=== PATIENT | male | born 1970 | race Caucasian/White ===

== ENCOUNTER 2022-08-11 11:39 | Outpatient (CLI) | payer OTHER, SELFPAY ==
--- NOTE | ~2022-08-11 | MR_ITS ---
EXAMINATION: MR knee RT wo con DATE: 08/11/2022 12:13 INDICATION: Right knee internal derangement TECHNIQUE: Magnetic resonance imaging (MRI) of the right knee was performed without intravenous contr ast. Sequences included coronal PD-weighted FSE, coronal PD-weighted FS FSE, sagittal T2-weighted FS E, sagittal PD-weighted FS FSE and axial PD weighted fat saturated FSE. COMPARISON: None. FINDINGS: Medial compartment: Complex tear of the body and posterior horn of the medial meniscus. Small central subchondral osteoph yte measuring 7 mm AP and 3 mm medial collateral at the site of deep chondral ulceration and fissurin g at the anterior weightbearing medial femoral condyle. Additional shallow chondral surface irregular ity along the medial tibial plateau. Lateral compartment: Lateral meniscus is normal. Small central subchondral osteophyte measuring 1.4 cm AP and 6 mm medial collateral at the site of deep chondral ulceration at the junction of the anterior to central weightb earing lateral femoral condyle. Additional partial thickness chondral ulceration involving greater th an 50% the cartilage thickness and with chondral surface regularity along the posterior medial aspect of the lateral tibial plateau. Patellofemoral compartment: Partial-thickness cartilage loss with deep fissuring and mild reticular edema-like signal change at t he medial patellar facet. Additional deep chondral fissuring with underlying cortical irregularity an d edema-like signal change at the central aspect of the lateral patellar facet. Additional deep chondral ulceration along the large portion of the lateral trochlea, the mid to infer ior trochlear groove and medial trochlea. Small central subchondral osteophytes as well as chondral f issuring at the cephalad aspect of the trochlear groove. Ligaments and tendons: Postoperative changes along the patellar tendon, anterior patella and anterior tibial tuberosity cons istent with prior patellar tendon autograft harvest site for an anterior cruciate ligament reconstruc tion. There appears be a partial-thickness tear of the anterior cruciate ligament reconstruction rosy t. A portion of the graft however appears to remain intact following a normal course between the femo ral and tibial tunnels. The posterior cruciate ligament is normal. The medial collateral ligament is normal. There is mild thickening and mild increased signal of the proximal fibular collateral ligamen t without surrounding edema consistent with scarring related to chronic sprain. Mild tendinopathy of the distal semimembranosus tendon. The remaining visualized medial hamstring tendons as well as the b iceps femoris tendon and the iliotibial band are normal. Fluid: Small glenohumeral joint effusion. Prominent synovitis at the posterior recess of the joint space. Th ere are also several multilobulated ganglion cysts posterior to the. Additional larger multiloculated ganglion cyst measuring 3.2 x 2.8 x 2.3 cm along the posterior margin of the distal femoral metaphys is margin of the cephalad popliteal fossa. No loose osteochondral bodies identified. Osseous/other: Bone alignment is normal. No fracture or pathologic marrow replacing process. IMPRESSION: 1. Prior anterior cruciate ligament reconstruction utilizing a patellar tendon autograft. There appea rs to be a partial tear of the graft. 2. Complex medial meniscal tear. 3. Mild tricompartmental osteoarthritis at the right knee with regions of high-grade chondral malacia in all 3 compartments. 4. Small right knee joint effusion and associated synovitis along with several ganglion cyst at the p osterior aspect of the knee. Reviewed, dictated and finalized at location B. IMPRESSION: 1. Prior anterior cruciate
== END 2022-08-11 11:40 | disposition home or self-care (01) ==
PROVIDERS: PCP Family Medicine; Visit Provider Orthopaedic Surgery
DX: M17.11 Unilateral primary osteoarthritis, right knee (principal); M25.461 Effusion, right knee; S83.231A Complex tear of medial meniscus, current injury, right knee, initial encounter; X58.XXXA Exposure to other specified factors, initial encounter
CPT/HCPCS: 73721

== ENCOUNTER 2022-10-21 09:06 | Outpatient (CLI) | payer OTHER, SELFPAY ==
--- NOTE | 2022-10-21 09:17 | ECG_ITS ---
Measurements Intervals [place] Rate: 67 P: 40 SC: 180 QRS: 6 QRSD: 107 T: 44 QT: 388 QTc: 411 Interpretive Statements SINUS RHYTHM BASELINE ARTIFACT- III, AVR, AVL, AVF NORMAL ECG NO PREVIOUS ECG AVAILABLE FOR COMPARISON Electronically Signed On 10-21-2022 12:51:05 REORDERING CLERK by Stephan Chambers D.O.
== END 2022-10-21 09:07 | disposition home or self-care (01) ==
LOC: ANHLAB 09:10
PROVIDERS: PCP Family Medicine; Visit Provider Family Medicine
DX: I10 Essential (primary) hypertension (principal)
CPT/HCPCS: 93005

== ENCOUNTER 2022-11-17 00:37 | Day surgery (SDC) | payer OTHER, SELFPAY ==
[2022-11-10 08:40] VITALS: BMI 31.8
--- NOTE | 2022-11-10 08:46 | PC.NURSE ---
Report to the Outpatient Waiting Room, entrance under the green pavilion located off [facility], at time 1130 on date 11/17/22. Planned Procedure Time: 1330. Time changes happen often and if your time is changed the preop area will call you the afternoon before. - You and your visitor will be asked to self-screen and do not enter if you have any COVID symptoms. - Only one visitor is requested with a max of two and NO children visitors are allowed at this time. - The patient visitor may be requested to leave or wait in car when not with patient due to distancing restrictions. - A mask is optional within the hospital at this time. Patients may have clear liquids (water, carbonated beverages, clear teas, apple juice) until 3 hours prior to surgery with a maximum of 20 ounces. - No food from midnight until time of surgery Take the following medications with a SIP of water the morning of surgery: N/A DO NOT STOP ANY OF YOUR OTHER PRESCRIPTION MEDICATIONS PRIOR TO SURGERY EXCEPT THE FOLLOWING Medications to discontinue per physician: N/A Date to take last dose: N/A Please no make-up, nail sami, hairspray, perfume, deodorant, or body powder the day of surgery. No jewelry (including any body piercings) or valuables the day of surgery, leave them at home. Please take a shower or bath the night before, or the morning of, surgery with an antibacterial soap. Wear comfortable, loose fitting clothing. - Jewelry must be removed prior to entering the operating room. Rings and piercings that are not removed may be cut off. - The hospital will not accept responsibility for valuables. - Please leave all valuables, including medications, at home the day of surgery. If you are going home after surgery, a licensed hydraulic lift driver must drive you home. - NO public transportation without another adult if you receive anesthesia. - We recommend that an adult stay with you for 24 hours following discharge. - We also recommend that you do not drive, make important decision, drink alcoholic beverages, or take any drugs that were not prescribed by your health care provider for at least 24 hours after your discharge time. Follow any additional instructions given to you from your surgeon. If you or anyone in your household have experienced Covid symptoms in the past week, please notify your surgeon or the nurse liaison at the phone number below for possible testing. Telephone instructions given to ERROL - DEMARCUS GUILLEN and asked if any additional questions and then verbalized understanding. Patient advised to call surgeon office or pre surgery nurse liaison [phone] if any additional questions.
[2022-11-17] VITALS (9 sets, daily range): BP systolic 127–167; BP diastolic 85–113; PULSE 58–76; RESP 10–16; TEMP 36.1–36.4; O2SAT 97–100
--- NOTE | 2022-11-17 07:19 | WPDHPUPDATE1 ---
History and Physical Update Update Date/Time: 11/17/22 07:19 History and Physical has been reviewed, including an updated exam of the patient. There are NO changes in the patient's condition. Risks, benefits, and alternatives have been discussed and questions answered. Patient agrees to proceed with procedure.
[2022-11-17] MEDS: LACTATED RINGERS 1,000 ML 30 ML IV CONT ×2 (12:30→15:21)
[2022-11-17] MEDS: CELECOXIB 200 MG CAPSULE PO (12:30)
[2022-11-17] MEDS: ACETAMINOPHEN 500 MG TABLET 1000 MG PO (12:30)
--- NOTE | 2022-11-17 12:43 | P.PNAN_ITS ---
Anes - Initial Pre Proc Eval Procedure: Operation Date: 11/17/22 13:30 Proposed Procedures p Right Knee Arthroscopy, Proceed As Indicated - Dioni Vogt MD Date/Time: 11/17/22 12:43 Surgeon: Dioni Vogt MD Pre Op Diagnosis: right knee medial meniscus tear Patient Data Age: 52 Gender: M Height: 1.83 m Weight: 107.7 kg Last Vital Signs Temp 36.4 C L 11/17/22 12:31 Pulse 76 11/17/22 12:31 Resp 14 11/17/22 12:31 BP 127/85 11/17/22 12:31 Pulse Ox 98 11/17/22 12:31 O2 Del Method Room Air 11/17/22 12:31 Allergies Allergy/AdvReac Type Severity Reaction Status Date / Time No Known Allergies Allergy Verified 11/10/22 08:39 Home Medications Medication Instructions Recorded Confirmed Type No Home Medications 11/05/22 11/10/22 History Patient hx anesthesia problems: none Family hx anesthesia problems: none Results Review: All pre-operative results and documents have been reviewed as part of the pre- operative evaluation. [facility] Past Medical History Medical History Borderline hypertension Normal colonoscopy Right knee pain Surgical History Surgical History H/O anterior cruciate ligament surgery Family History Family History Other Cerebrovascular accident Family history of chronic obstructive pulmonary disease Malignant neoplasm of prostate Social History Social History Smoking packs per day: 0.75 Smoking cigarettes per day: 15.0 Years smoked: 10 Smoking pack-years: 7.50 Smoking status: Former smoker Tobacco type: cigarettes Second hand tobacco smoke exposure: Yes Smoking end date: 10/10/22 Alcohol intake: former Alcohol use details: drinks on the weekends Substance use: never Substance use type: does not use Lack of Transportation: No Lack of Food: Never True Current Housing: I Have Housing Concerned About Future Housing: No Difficulty Paying Gas/Electric Bills: No Difficulty Paying for Meds: No Currently Unemployed: No Education: Trade/Vocational Certificate Difficulty w/ Childcare or Family Care: No Living arrangements: with family Gender identity (if verbalized by the patient): Male Sexual Orientation (if Verbalized by the Patient): Straight or Heterosexual Spiritual care concerns: No Agree to blood products: Yes Anes - Evkenzie Final PreProcedure Day of Procedure 11/17/22 12:43 Patient weight: obese Heart: regular rate and rhythm Lungs: clear to auscultation Airway: Mallampati scale class III Neurological: alert and oriented Last oral intake: >/= 8 hours ASA classification: III Emergent: no Anesthetic plan: proceed Anesthesia type and monitoring: general LMA and standard monitoring Results Review: All pre-operative results and documents have been reviewed as part of the pre- operative evaluation. Informed Consent: The patient's anesthetic plan and its attendant risks and benefits were discussed with the patient/family/POA. Questions were solicited and answers provided to the satisfaction of the p
[2022-11-17] MEDS: ceFAZolin 2 GM/D5W 50 ML 2 GM/50 ML BAG IVPB (13:44)
[2022-11-17] MEDS: BUPivacaine HCL 0.5% PF 30 ML VIAL 10 ML INFILTRATE (14:37)
--- NOTE | 2022-11-17 15:30 | W.PM.PROC2 ---
Procedure Note - Detailed Date of Procedure 11/17/22 Pre-op Diagnosis right knee medial meniscus tear Post-op Diagnosis Same Procedure Performed RIGHT KNEE SCOPE Surgeon Dioni Vogt MD Anesthesia General Description of Procedure PATIENT WAS TAKEN TO THE OR. RIGHT LEG WAS PREPPED AND DRAPED STERILE. TROCARS WERE PLACED IN THE USUAL FASHION. CAMERA WAS INTRODUCED. THERE WAS SEVERE CHONDROMALACIA TO THE PATELLA FEMORAL JOINT. THERE WAS A LOT OF SYNOVITIS IN ALL COMPARTMENTS. THE MEDIAL COMPARTMENT SHOWED CHONDROMALACIA TO THE MEDIAL FEMORAL CONDYLE. A SHAVER WAS USED TO PREFORM A CHONDROPLASTY. THERE WAS A COMPLEX MEDIAL MENISCUS TEAR. THE TEAR EXTENDED IN TO THE ROOT AND CONTINUED THROUGH THE POSTERIOR HORN. THE TEAR WAS RESECTED WITH A BITER AND A SHAVER DOWN TO A SMOOTH BASE. ABOUT 30% OF THE MENISCUS WAS REMOVED. THE ACL WAS INTACT BUT IT APPEARED TO BE LAX AND STRETCHED OUT. THE LATERAL MENISCUS WAS TORN AT THE ANTERIOR HORN. THE TEAR WAS RESECTED. THE LATERAL COMPARTMENT HAD GRADE 2 CHONDROMALACIA AT THE LATERAL FEMORAL CONDYLE. CHONDROPLASTY WAS PREFORMED. A SYNOVECTOMY WAS PREFORMED WELL. THE PATELLO FEMORAL JOINT UNDERWENT CHONDROPLASTY. THERE WAS GRADE 3 CHONDROMALACIA IN MOST OF THE TROCHLEA AND PART OF THE PATELLA. SYNOVECTOMY WAS PREFORMED IN THE SUPERIOR MEDIAL COMPARTMENT. THE WOUNDS WERE APPROXIMATED WITH 4.0 NYLON. STERILE DRESSING WAS APPLIED. PATIENT WAS EXTUBATED. Estimated Blood Loss 5 Complications No immediate complications Condition Stable Disposition PACU
[2022-11-17] MEDS: fentaNYL CITRATE INJ (*CRX) 100 MCG/2 ML VIAL 25 MCG IV PUSH (15:57)
--- NOTE | 2022-11-17 16:20 | SUR.PHASEI ---
this nurse called dr gaspar about pt elevated diastolic bp. no further orders at this time and for pt to talk to pcp about elevated bp.
[2022-11-17] MEDS: oxyCODONE HCL (*CRX) 5 MG TAB IR PO (16:56)
== END 2022-11-17 17:30 | disposition home or self-care (01) ==
PROVIDERS: PCP Family Medicine; Visit Provider Orthopaedic Surgery
PROC: (CPT 29870; principal; 2022-11-17 13:30)
DX: M23.321 Other meniscus derangements, posterior horn of medial meniscus, right knee (principal); M22.41 Chondromalacia patellae, right knee; M65.861 Other synovitis and tenosynovitis, right lower leg; Z87.891 Personal history of nicotine dependence; E66.9 Obesity, unspecified; Z68.32 Body mass index [BMI] 32.0-32.9, adult
CPT/HCPCS: 29881; A9270; J0690; J1100; J2250; J2405; J2704; J3010; J7120